=== PATIENT | male | born 2000 | race Two or more races ===

== ENCOUNTER 2021-07-24 05:57 | Emergency (ER) | payer SELFPAY ==
[~2021-07-24] VITALS: Ht 175.3 cm; Wt 64.0 kg
[2021-07-24 06:00] VITALS: BP 131/75
[2021-07-24 06:39] LABS: BASO % 1 % (0-3); EOS # 0.6 x10^3/uL (0.0-0.7); EOS % 10 % (0-3); HEMATOCRIT 42.3 % (39.0-53.0); HEMOGLOBIN 14.1 g/dL (13.0-17.5); LYMPH # 2.7 x10^3/uL (1.0-4.8); LYMPH % 44 % (24-48); MEAN CORPUSCULAR HEMOGLOBIN 31 pg (25-35); MEAN CORPUSCULAR HGB CONC 33 g/dL (31-37); MEAN CORPUSCULAR VOLUME 92 fL (79-100); MONO # 0.3 x10^3/uL (0.0-1.1); MONO % 6 % (0-9); NEUT # 2.4 x10^3/uL (1.8-7.7); NEUT % 40 % (31-73); PLATELET COUNT 271 x10^3/uL (140-400); RED BLOOD COUNT 4.59 x10^6/uL (4.30-5.70); RED CELL DISTRIBUTION WIDTH 13.4 % (11.5-14.5); WHITE BLOOD COUNT 6.1 x10^3/uL (4.0-11.0)
[2021-07-24 06:41] LABS: CALCIUM 8.1 mg/dL (8.5-10.1); CREATININE 0.9 mg/dL (0.7-1.3); GFR 107.6; POTASSIUM 3.9 mmol/L (3.5-5.1)
[2021-07-24] MEDS ORDERED: CONTRAST GIVEN. MC PRN (06:45)
[2021-07-24 06:47] LABS: ALBUMIN 3.9 g/dL (3.4-5.0); ALBUMIN/GLOBULIN RATIO 1.1 (1.0-1.7); TOTAL BILIRUBIN 0.3 mg/dL (0.2-1.0); TOTAL PROTEIN 7.3 g/dL (6.4-8.2)
[2021-07-24 06:50] LABS: PROTHROMBIN TIME PATIENT 12.9 SEC (11.7-14.0)
--- NOTE | 2021-07-24 06:55 | PHYS DOC ---
Past Medical History Past Surgical History: Other Additional Past Surgical Histo: RIGHT WRIST Smoking Status: Current Every Day Smoker Alcohol Use: Rarely General Adult EDM: Chief Complaint: NECK PAIN HPI: HPI: 20-year-old male past medical history of tobacco use, presents to the ED with complaints of right-sided neck pain, intermittent but progressively worsening for the past month, cannot look to the right or left due to the pain. Reports he saw a chiropractor yesterday who performed manipulation on his neck and his pain is significantly worse. Now has numbness and tingling in his right second third and fourth digits. Reports associated radiculopathy down his right arm. Is right-hand dominant. States his right trapezius muscle "is higher," more elevated than the left. Has not taken anything for the pain. Girlfriend is at bedside, (patient consents to his/her/their knowledge and involvement in pts' medical care). Denies any history of cervical trauma, fractures or surgeries. Review of Systems: Review of Systems: Constitutional: Denies fever or chills. [] Eyes: Denies change in visual acuity. [] HENT: Denies nasal congestion or sore throat. [] Respiratory: Denies cough or shortness of breath. [] Cardiovascular: Denies chest pain or edema. [] GI: Denies nausea or vomiting : Denies incontinence or saddle anesthesia Musculoskeletal: Denies back pain or joint pain. [] Integument: Denies rash or diaphoresis Neurologic: Denies headache or decreased muscle strength Endocrine: Denies polyuria or polydipsia. [] Lymphatic: Denies swollen glands. [] Psychiatric: Denies depression or anxiety. [] Heart Score: C/O Chest Pain: No Risk Factors: Risk Factors: DM, Current or recent (<one month) smoker, HTN, HLP, family history of CAD, obesity. Risk Scores: Score 0 - 3: 2.5% MACE over next 6 weeks - Discharge Home Score 4 - 6: 20.3% MACE over next 6 weeks - Admit for Clinical Observation Score 7 - 10: 72.7% MACE over next 6 weeks - Early Invasive Strategies Current Medications: Current Medications Medications (Trade) Dose Ordered Sig/Moriah Start Time Stop Time Status Last Admin Dose Admin Diazepam (Valium) 5 mg 1X ONCE 07/24/21 07:00 07/24/21 07:01 Info (CONTRAST GIVEN -- Rx MONITORING) 1 each PRN DAILY PRN 07/24/21 06:45 07/26/21 06:44 Iohexol (Omnipaque 300 Mg/ml) 75 ml 1X ONCE 07/24/21 07:00 07/24/21 07:01 Sodium Chloride 1,000 ml @ 1,000 mls/hr 1X ONCE 07/24/21 07:00 07/24/21 07:59 Allergies: Allergies: Allergies Coded Allergies Type Severity Reaction Last Updated Verified No Known Drug Allergies 07/24/21 No Physical Exam: PE: Constitutional: Well developed, well nourished, no acute distress, non-toxic appearance. HENT: Normocephalic, atraumatic, Eyes: pupils equil and reactive, EOMI, conjunctiva normal, no discharge. Neck: no JVD, reports C1-4 midline neck pain, right posterior paraspinal neck tenderness and right trapezius ttp w/ropiness, petechia/hickey over right anterior neck, Cardiovascular: S1/2 present, regular rhythm Lungs & Thorax: Speaking in full sentences, bilateral equal chest rise, no tachypnea or increased work of breathing Skin: Warm, dry, no erythema, no rash, cap refill < 1 second Back: No tenderness, no CVA tenderness. [] Extremities: no cyanosis, no lower extremity edema, C6-8 parethesias, median/ulnar/radial nerve sensation intact, equal radial pulses, axillary nerve sensation intact, equal hand consumer educator strength, touches thumb to every digit, no hand/elbow/shoulder decreased ROM Neurologic: Alert and oriented X 3, no focal deficits noted. [] Psychologic: Affect normal, judgement normal, mood normal. [] Current Patient Data: Labs: Laboratory Tests Test 07/24/21 06:25 White Blood Count 6.1 x10^3/uL (4.0-11.0) Red Blood Count 4.59 x10^6/uL (4.30-5.70) Hemoglobin 14.1 g/dL (13.0-17.5) Hematocrit 42.3 % (39.0-53.0) Mean Corpuscular Volume 92 fL (79-100) Mean Corpuscular Hemoglobin 31 pg (25-35) Mean Corpuscular Hemoglobin Concent 33 g/dL (31-37) Red Cell Distribution Width 13.4 % (11.5-14.5) Platelet Count 271 x10^3/uL (140-400) Neutrophils (%) (Auto) 40 % (31-73) Lymphocytes (%) (Auto) 44 % (24-48) Monocytes (%) (Auto) 6 % (0-9) Eosinophils (%) (Auto) 10 % (0-3) H Basophils (%) (Auto) 1 % (0-3) Neutrophils # (Auto) 2.4 x10^3/uL (1.8-7.7) Lymphocytes # (Auto) 2.7 x10^3/uL (1.0-4.8) Monocytes # (Auto) 0.3 x10^3/uL (0.0-1.1) Eosinophils # (Auto) 0.6 x10^3/uL (0.0-0.7) Basophils # (Auto) 0.0 x10^3/uL (0.0-0.2) Sodium Level 143 mmol/L (136-145) Potassium Level 3.9 mmol/L (3.5-5.1) Chloride Level 106 mmol/L (98-107) Carbon Dioxide Level 29 mmol/L (21-32) Anion Gap 8 (6-14) Blood Urea Nitrogen 11 mg/dL (8-26) Creatinine 0.9 mg/dL (0.7-1.3) Estimated GFR (Cockcroft-Gault) 107.6 BUN/Creatinine Ratio 12 (6-20) Glucose Level 109 mg/dL (70-99) H Calcium Level 8.1 mg/dL (8.5-10.1) L Total Bilirubin 0.3 mg/dL (0.2-1.0) Aspartate Amino Transferase (AST) 7 U/L (15-37) L Alanine Aminotransferase (ALT) 21 U/L (16-63) Alkaline Phosphatase 81 U/L (46-116) Total Protein 7.3 g/dL (6.4-8.2) Albumin 3.9 g/dL (3.4-5.0) Albumin/Globulin Ratio 1.1 (1.0-1.7) Laboratory Tests 07/24/21 06:25 Laboratory Tests 07/24/21 06:25 Vital Signs: Vital Signs Date Time Temp Pulse Resp B/P (MAP) Pulse Ox O2 Delivery O2 Flow Rate FiO2 07/24/21 06:00 97.7 60 16 131/75 (93) 100 Room Air 97.7 EKG: EKG: [] Radiology/Procedures: Radiology/Procedures: IMAGING REPORT Signed PATIENT: KELSEA DA SILVA ACCOUNT: [id number] : 2000 LOCATION: ER AGE: 20 SEX: M EXAM STATUS: REG ER ORD. PHYSICIAN: CALEB CASTILLO DO REASON: neck pain s/p chiropractor PROCEDURE: CT ANGIOGRAPHY HEAD AND NECK CTA HEAD AND NECK W/WO CONTRAST History:Reason: neck pain s/p chiropractor / Spl. Instructions: omni 300 75ml / History: Technique: After bolus of intravenous contrast, volumetric CT data acquisition was acquired of the head and neck. Multiplanar reconstruction images to include MIP and 3-D reconstruction images are submitted. Exposure: One or more of the following individualized dose reduction techniques were utilized for this examination: 1. Automated exposure control 2. Adjustment of the mA and/or kV according to patient size 3. Use of iterative reconstruction technique. Comparison: None Any determination of stenosis is based on NASCET criteria. Head CTA: ICA: No stenosis, occlusion or aneurysm. MCA: No stenosis, occlusion or aneurysm. BRIANNE: No stenosis, occlusion or aneurysm. 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 Basilar artery: No stenosis, occlusion or aneurysm. Distal vertebral arteries: No stenosis, occlusion or aneurysm. Probable left middle cranial fossa arachnoid cyst measures 1.9 x 1.2 cm. Patent superior sagittal, straight, transverse and sigmoid venous sinuses. CT angiogram neck: Aortic arch: Conventional arch anatomy. Subclavian arteries: Mild narrowing of the right subclavian artery within the thoracic outlet immediately adjacent to the first rib (series 3 image 68 and series 6 image 182). Common carotid arteries: No stenosis, occlusion or dissection. Internal carotid arteries: No stenosis, occlusion or dissection. External carotid arteries: Patent Vertebral arteries: No stenosis, occlusion or dissection. Imaged lung apices are unremarkable. Soft tissues appear normal. Bones: No pathologic osseous lesions. Impression: CT angiogram head 1. No intracranial arterial stenosis or occlusion. CT angiogram neck: 1. No arterial dissection or occlusion. 2. Mild narrowing of the right proximal subclavian artery at the thoracic outlet. Recommend correlation with symptoms of thoracic outlet syndrome. Electronically signed by: Gerard Cintron DO (07/24/2021 7:56 AM) [facility] DICTATED and SIGNED BY: GERARD CINTRON DO DATE: 07/24/21 [id number] IMAGING REPORT Signed PATIENT: KELSEA DA SILVA ACCOUNT: [id number] : 2000 LOCATION: ER AGE: 20 SEX: M EXAM STATUS: REG ER ORD. PHYSICIAN: CALEB CASTILLO DO REASON: neck pain s/p chiropractor PROCEDURE: CT HEAD AND CERVICAL SPINE WO CT HEAD AND C-SPINE WO History: Reason: neck pain s/p chiropractor / Spl. Instructions: / History: Comparison: None. Technique: Noncontrast CT imaging was performed of the head and cervical spine. Coronal and sagittal reconstructions were performed. Exposure: One or more of the following individualized dose reduction techniques were utilized for this examination: 1. Automated exposure control 2. Adjustment of the mA and/or kV according to patient size 3. Use of iterative reconstruction technique. Findings: Head CT: No intracranial hemorrhage. No mass effect. No hydrocephalus. Extra- axial spaces are unremarkable. Imaged orbits are unremarkable. Imaged paranasal sinuses and mastoid air cells are clear. No acute calvarial fracture. Cervical spine CT: Straightening of the cervical spine. Normal vertebral body height. No acute fracture. C4-C5 disc protrusion eccentric to the right contributing to mild right canal narrowing and potential right neuroforaminal narrowing. Soft tissues unremarkable. Impression: Head CT: 1. No acute intracranial abnormality. Cervical spine CT: 1. No acute fracture or subluxation of the cervical spine. 2. C4-C5 disc protrusion contributing to mild canal narrowing. MRI can further evaluate if clinically indicated. Electronically signed by: Gerard Cintron DO (07/24/2021 7:34 AM) [facility] and SIGNED BY: GERARD CINTRON DO DATE: 07/24/21 [id number] Course & Med Decision Making: Course & Med Decision Making Pertinent Labs and Imaging studies reviewed. (See chart for details) Concern for cervical pain in the setting thoracic outlet syndrome and C4-5 mild disc protrusion. On re-evaluation after Valium, patient sleeping comfortably and able to look to the left and right, flexes and extends his head without any significant distress. Patient with equal upper extremity muscle strength and sensation intact. Patient is neurovascularly intact. Patients' pain and range of motion has significantly improved. Patient has no associated fever, headache or confusion. No history of blunt trauma. Will recommend muscle relaxers, analgesia, rest and no significant strenuous activity for the next 2 weeks until symptoms resolve. Will discharge home with strict ED return precautions were given for severe pain, paralysis, fever or injury. Encouraged urgent outpatient follow-up with PMD for routine care and orthopedic surgery for definitive management, may benefit from physical therapy. Life-threatening processes were considered but are low suspicion at this time, given history, physical exam and ED workup. Pt was educated on all prescription medications and adverse effects. All patient's questions were answered and pt was stable at time of discharge. Life/limb-threatening differential includes but is not limited to, janay's angina, peritonsillar abscess, retropharyngeal abscess, epiglottitis, bacterial tracheitis, uvulitis, sepsis, mastoiditis, traumatic injury, carotid/vertebral dissection, meningitis/encephalitis, traumatic injury, intracranial aneurysms or neurologic process. I have spoken with the patient and/or caregivers. I explained the patient's con dition, diagnoses and treatment plan based on the information available to me at this time. I have answered the patient and/or caregiver's questions and addressed any concerns. The patient and/or caregivers have a good understanding of patient's diagnosis, condition and treatment plan as can be expected at this point. Vital signs have been stable. Patient's condition is stable and appropriate for discharge from the emergency department. Patient will pursue further outpatient evaluation with primary care physician or other designated or consulting physician as outlined in the discharge in structions. The patient and/or caregivers are agreeable to this plan of care and follow-up instructions have been explained in detail. The patient and/or caregivers have received these instructions in written form and have expressed an understanding of the discharge instructions. The patient and/or caregivers are aware that any significant change of condition or worsening of symptoms should prompt immediate return to this or the closest emergency department or call to 911. Tommy Disclaimer: Tommy Disclaimer: This electronic medical record was generated, in whole or in part, using a voice recognition dictation system. Departure Departure Impression: Primary Impression: Thoracic outlet syndrome Additional Impression: Cervical disc herniation Disposition: HOME / SELF CARE / HOMELESS Condition: STABLE Referrals: NO PCP (PCP) Follow-up with your primary care physician in 24 to 48 hours OR FOLLOW UP WITH FAMILY MEDICINE: [address], [address] [place] [address] Patient Instructions: Herniated Disk, Thoracic Outlet Syndrome Additional Instructions: FOLLOW UP WITH ORTHOPEDICS: FOR DEFINITIVE MANAGEMENT of neck pain Orthopaedic Surgery [address], [address] [place] [address] EMERGENCY DEPARTMENT GENERAL DISCHARGE INSTRUCTIONS Thank you for coming to [facility] Emergency Department (ED) today and trusting us with you care. We trust that you had a positive experience in our Emergency Department. If you wish to speak to the department management, you may call the Director at [phone]. YOUR FOLLOW UP INSTRUCTIONS ARE FOLLOWS: 1. Do you have a private Doctor? If you do not have a private doctor, please ask for a resource list of physicians or clinics that may be able to assist you with follow up care. 2. The Emergency Physicain has interpreted your x-rays. The X-Ray specialist will also review them. If there is a change in the findings, you will be notified in 48 hours when at all possible. 3. A lab test or culture has been done, your results will be reviewed and you will be notified if you need a change in treatment. ADDITIONAL INSTRUCTIONS AND INFORMATION: 1. Your care today has been supervised by a physician who is specially trained in emergency care. Many problems require more than one evaluation for a complete diagnosis and treatment. We recommend that you schedule your follow up appointment as re commended to ensure complete treatment of you illness or injury. If you are unable to obtain follow up care and continue to have a problem, or if your condition worsens, we recommend that you return to the ED. 2. We are not able to safely determine your condition over the phone nor are we able to give sound medical advice over the phone. For these safety reasons, if you call for medical advice we will ask you to come to the ED for further evaluation. 3. If you have any questions regarding these discharge instructions please call the ED at [phone]. SAFETY INFORMATION: In the interest of safety, wellness, and injury prevention; we encourage you to wear your sealbelt, if you smoke; quite smoking, and we encourage family to use a protective helmet for bicycling and other sporting events that present an increased risk for head injury. IF YOUR SYMPTOMS WORSEN OR NEW SYMPTOMS DEVELOP, OR YOU HAVE CONCERNS ABOUT YOUR CONDITION; OR IF YOUR CONDITION WORSENS WHILE YOU ARE WAITING FOR YOUR FOLLOW UP APPOINTMENT; EITHER CONTACT YOUR PRIMARY CARE DOCTOR, THE PHYSICIAN WHOSE NAME AND NUMBER YOU WERE GIVEN, OR RETURN TO THE ED IMMEDIATELY. Scripts Lidocaine (Lido Bayron) 1 Each Adh..patch 1 EACH TP DAILY for 5 Days, #5 PATCH Apply 1 patch for 12 hours, remove for another 12 hours. May repeat, 1 patch per day as instructed above. Prov: CALEB CASTILLO DO 07/24/21 Cyclobenzaprine Hcl (CYCLOBENZAPRINE HCL) 10 Mg Tablet 1 TAB PO TID, #30 TAB Prov: CALEB CASTILLO DO 07/24/21 CALEB CASTILLO DO Jul 24, 2021 06:55
[2021-07-24] MEDS ORDERED: IOHEXOL 300 MG/ML 100ML VIAL. IV ONE (07:00)
[2021-07-24] MEDS ORDERED: diazePAM 5 MG TABLET PO ONE (07:00)
[2021-07-24] MEDS ORDERED: IV NORMAL SALINE 1000ML BAG 1,000 ML IV ONE (07:00)
--- NOTE | 2021-07-24 07:36 | RAD ---
CT HEAD AND C-SPINE WO History: Reason: neck pain s/p chiropractor / Spl. Instructions: / History: Comparison: None. Technique: Noncontrast CT imaging was performed of the head and cervical spine. Coronal and sagittal reconstructions were performed. Exposure: One or more of the following individualized dose reduction techniques were utilized for thi s examination: 1. Automated exposure control 2. Adjustment of the mA and/or kV according to patient size 3. Use of iterative reconstruction technique. Findings: Head CT: No intracranial hemorrhage. No mass effect. No hydrocephalus. Extra-axial spaces are unrema rkable. Imaged orbits are unremarkable. Imaged paranasal sinuses and mastoid air cells are clear. No acute ca lvarial fracture. Cervical spine CT: Straightening of the cervical spine. Normal vertebral body height. No acute fracture. C4-C5 disc protrusion eccentric to the right contributing to mild right canal narrowing and potential right neuroforaminal narrowing. Soft tissues unremarkable. Impression: Head CT: 1. No acute intracranial abnormality. Cervical spine CT: 1. No acute fracture or subluxation of the cervical spine. 2. C4-C5 disc protrusion contributing to mild canal narrowing. MRI can further evaluate if clinicall y indicated. Electronically signed by: Gerard Hernandez DO (07/24/2021 7:34 AM) [facility]
--- NOTE | 2021-07-24 07:59 | RAD ---
CTA HEAD AND NECK W/WO CONTRAST History:Reason: neck pain s/p chiropractor / Spl. Instructions: omni 300 75ml / History: Technique: After bolus of intravenous contrast, volumetric CT data acquisition was acquired of the he ad and neck. Multiplanar reconstruction images to include MIP and 3-D reconstruction images are submi tted. Exposure: One or more of the following individualized dose reduction techniques were utilized for thi s examination: 1. Automated exposure control 2. Adjustment of the mA and/or kV according to patient size 3. Use of iterative reconstruction technique. Comparison: None Any determination of stenosis is based on NASCET criteria. Head CTA: ICA: No stenosis, occlusion or aneurysm. MCA: No stenosis, occlusion or aneurysm. BRIANNE: No stenosis, occlusion or aneurysm. 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 Basilar artery: No stenosis, occlusion or aneurysm. Distal vertebral arteries: No stenosis, occlusion or aneurysm. Probable left middle cranial fossa arachnoid cyst measures 1.9 x 1.2 cm. Patent superior sagittal, st raight, transverse and sigmoid venous sinuses. CT angiogram neck: Aortic arch: Conventional arch anatomy. Subclavian arteries: Mild narrowing of the right subclavian artery within the thoracic outlet immedia tely adjacent to the first rib (series 3 image 68 and series 6 image 182). Common carotid arteries: No stenosis, occlusion or dissection. Internal carotid arteries: No stenosis, occlusion or dissection. External carotid arteries: Patent Vertebral arteries: No stenosis, occlusion or dissection. Imaged lung apices are unremarkable. Soft tissues appear normal. Bones: No pathologic osseous lesions. Impression: CT angiogram head 1. No intracranial arterial stenosis or occlusion. CT angiogram neck: 1. No arterial dissection or occlusion. 2. Mild narrowing of the right proximal subclavian artery at the thoracic outlet. Recommend correlat ion with symptoms of thoracic outlet syndrome. Electronically signed by: Gerard Hernandez DO (07/24/2021 7:56 AM) [facility] [place]
[2021-07-24] MEDS ORDERED: CYCL10TA19 PO (09:27)
[2021-07-24] MEDS ORDERED: LIDO1ADH78 TP (09:27)
== END 2021-07-24 09:55 | disposition home or self-care (01) ==
LOC: ER 05:57 → EDBD 05:57 → ER 09:55
DX: G54.0 Brachial plexus disorders (principal); M50.20 Other cervical disc displacement, unspecified cervical region; R51.9 Headache, unspecified; F17.200 Nicotine dependence, unspecified, uncomplicated
CPT/HCPCS: 36415; 70450; 70496; 70498; 72125; 80053; 85025; 85610; 85730; 96360; 99285; J7030; Q9967